=== PATIENT | male | born 1955 | race Caucasian/White ===

== ENCOUNTER 2019-02-28 07:03 | Outpatient (CLI) | payer BC | END 2019-02-28 23:59 | disposition home or self-care (01) | LOC: CFH 07:03 | PROVIDERS: ATTEND Internal Medicine Cardiovascular Disease | DX: I35.8 Other nonrheumatic aortic valve disorders (principal); I44.7 Left bundle-branch block, unspecified | CPT/HCPCS: 78452; 93017; 93306; A9502; J2785 ==